=== PATIENT | female | born 1970 | race Caucasian/White ===

== ENCOUNTER 2024-02-02 20:25 | Emergency (ER) | payer OTHER, SELFPAY ==
[2024-02-02 20:29] VITALS: BP 164/100
--- NOTE | 2024-02-02 22:15 | ED.GENMED ---
History of Present Illness
<PANCHO Adams - Last Filed: 02/03/24 02:17>
General
Chief Complaint: Head Injury
Source: patient and significant other
Exam Limitations: none
Time Seen by Provider: 02/02/24 22:07
Nursing documentation reviewed up to this point in time: agreed with
Travel History
Have you had any contact with someone who has COVID-19?: No
Do you have any symptoms of coronavirus? Fever > 100 degrees, chills, cough, shortness of breath, sore throat, loss of taste or smell, muscle aches, or headache?: No
History of Present Illness
History of Present Illness:
This is a 53 year old female w/ no significant PMHx who presents to the ER w/ c/o head injury x3 hours. Patient reports she was trying to put down her garage door when it broke off the rails and fell onto her head. This was accidental. She reports
throbbing headache and feeling more tired. She denies LOC. She denies visual disturbances, dizziness or lightheadedness, photophobia, or amnesia. She denies fever, chills, CP, or SOB. She is not UTD on her Tdap.
Review of Systems
<PANCHO Adams - Last Filed: 02/03/24 02:17>
Review of Systems
Allergies reviewed?: Yes
All Other Systems: Not applicable
Constitutional: Reports fatigue
EENT: Reports no symptoms
Respiratory: Reports no symptoms
Cardiac: Reports no symptoms
ABD/GI: Reports no symptoms
: Reports no symptoms
Musculoskeletal: Reports no symptoms
Skin: Reports other (Laceration)
Neurological: Reports headache
Endocrine: Reports no symptoms
Hematologic/Lymphatic: Reports no symptoms
Psychiatric: Reports no symptoms
Phy Exam
<PACNHO Adams - Last Filed: 02/03/24 02:17>
General Physical Exam
General Presentation: well appearing and no apparent distress
General Skin: warm and dry
General Habitus: normal
General Mental: alert
General Hydration: appears well hydrated
ENT Exam
ENT Exam: EOMI, pharynx normal, neck supple and normocephalic
Eye Exam
Eye Exam: PERRL, cornea clear and conjunctiva normal
Cardiovascular Exam
Cardiovascular Exam: regular rate/rhythm, no edema, no murmur and normal peripheral pulses
Pulmonary Exam
Pulmonary Exam: lungs clear, no respiratory distress, no rales, no crackles, no rhonchi, no stridor, no wheezing and no cough
Gastrointestinal Exam
Gastrointestinal Exam: normal bowel sounds, non tender, soft, no organomegaly, no pulsatile mass and non distended
Neurological Exam
Neurological Exam: alert, oriented x3, no motor deficits and speech normal
Musculoskeletal Exam
Musculoskeletal Exam: full ROM and no edema
Skin Exam
Skin Exam: normal color, warm/dry, no rash, no petechia and laceration (7cm linear laceration on superior scalp )
Psychiatric Exam
Psychiatric Exam: normal mood/affect
Course
<PANCHO Adams - Last Filed: 02/03/24 02:17>
Orders/Labs/Results
Orders:
Orders
02/02/24 20:33
CT Head W/o Iv Contrast Urgent
Comment:
Reason For Exam: head injury
02/02/24 22:34
Ibuprofen [Motrin] 600 mg PO NOW STA
Tetanus/Diphth/Acelpertussis [Adacel] 0.5 ml IM .ONCE ONE
Vital Signs
Initial and Last Documented VS:
Initial Vital Signs
Temp Pulse Resp BP Pulse Ox
97.9 F 95 19 164/100 100
02/02/24 20:29 02/02/24 20:29 02/02/24 20:29 02/02/24 20:29 02/02/24 20:29
Last Documented Vital Signs
Temp Pulse Resp BP Pulse Ox
97.9 F 73 19 145/85 100
02/02/24 20:29 02/02/24 23:06 02/02/24 20:29 02/02/24 23:06 02/02/24 20:29
<Sarath Harper DO - Last Filed: 02/02/24 22:46>
Orders/Labs/Results
Orders:
Orders
02/02/24 20:33
CT Head W/o Iv Contrast Urgent
Comment:
Reason For Exam: head injury
02/02/24 22:34
Ibuprofen [Motrin] 600 mg PO NOW STA
Tetanus/Diphth/Acelpertussis [Adacel] 0.5 ml IM .ONCE ONE
Vital Signs
Initial and Last Documented VS:
Initial Vital Signs
Temp Pulse Resp BP Pulse Ox
97.9 F 95 19 164/100 100
02/02/24 20:29 02/02/24 20:29 02/02/24 20:29 02/02/24 20:29 02/02/24 20:29
Last Documented Vital Signs
Temp Pulse Resp BP Pulse Ox
97.9 F 73 19 145/85 100
02/02/24 20:29 02/02/24 23:06 02/02/24 20:29 02/02/24 23:06 02/02/24 20:29
Procedures
<PANCHO Adams - Last Filed: 02/03/24 02:17>
Laceration Closure
Superior Scalp:
Status of Wound: clean
Size of Wound in cm: 7
Description of Wound Edges: sharp
Preparation: cleaned with saline
Anesthesia: 1% Lidocaine with epi
Type of Closure: interrupted sutures
Skin Closure Material: 5-0 vicryl
Number of sutures: 6
<PANCHO Adams - Last Filed: 02/03/24 02:17>
MDM/Problems Addressed
Differential Diagnosis Includes:
Scalp laceration, concussion, subdural hematoma
Subdural hematoma considered due to head injury. However, head CT scan showed no acute intracranial abnormalities. I suspect mild concussion associated with head injury. She has mild nausea and headache. She does deny amnesia, photophobia, or
dizziness making it less likely that this is a severe concussion.
<PANCHO Adams - Last Filed: 02/03/24 02:17>
*Critical Care Note
Total Time (30-74mins, 75-104mins- exclusive of procedures): Not Applicable
ED Attending Note
<PANCHO Adams - Last Filed: 02/03/24 02:17>
-
Portions of this chart may have been created with voice recognition software.� Occasional wrong word or��sound alike� substitutions may have occurred due to the inherent limitations of voice recognition software.
<Sarath Harper, DO - Last Filed: 02/02/24 22:46>
ED Attending Note
Patient seen and examined by attending physician: Yes
I performed the substantive portion of visit, reviewed & personally made and approve the management plan that is documented in note by myself or BALBINA.: Yes
ED Attending Note:
I have seen and evaluated the patient with a [id number] encounter. I have spoken to the advance practicer provider and involved in the medical history, the physical exam, medical decision making.
Evaluation and management service: agree unless noted differently below.
Results interpretation: agree unless noted differently below.
Focused HPI: 53-year-old female presenting with head injury. A garage door fell on her head. She denies loss of consciousness or vomiting. She is unsure about her tetanus
Physical exam: Linear 7 cm laceration to top of scalp. EOMI. Patient lying in bed comfortable
Medical Decision Making: We discussed lori versus sutures. We opted for absorbable stitches so she did not have to follow-up for staple removal. Will update tetanus. We discussed concussion protocol and return precautions. CT head negative
Discharge Plan
Departure
Patient Disposition: Home (Routine Discharge)
Date of Disposition: 02/02/24
Time of Disposition: 22:45
Patient with high blood pressure during this ER visit?: Yes
Discharge Problem:
Laceration of scalp
Instructions: Concussion, Adult (DC), Laceration Repair With Lori (DC), BLOOD PRESSURE
Referrals:
Angie Noble MD [Family Provider] -
Activity Restrictions/Additional Instructions:
Watch for signs of infection: fever over 100.5�, increasing pain, red streaks around wound, swelling, drainage of pus, or bad smell. If any of these happen, return to ED promptly. The sutures will dissolve on their own.
Please return for any worsening symptoms.
You may return at any time if you have further concerns.
Please follow up with your doctor at the first available appointment, preferably this week.
Thank you for choosing [facility].
Interventions
Interventions:
*Risk Screen - Suicide Last Done: 02/02/24 20:29
*General Assessment Last Done: 02/02/24 20:29
*Neglect/Abuse Screening Last Done: 02/02/24 20:29
*ED COVID-19 Vaccine History Last Done: 02/02/24 20:29
*Nursing Disposition Last Done: 02/02/24 23:06
ED- Neurological Assessment Last Done: 02/02/24 20:47
ED-Skin Assessment Last Done: 02/02/24 20:47
Discharge Date and Time
Discharge Date/Time: 02/02/24 23:07
Print Language: [place]
[2024-02-02] MEDS: ADACEL 0.5 ML IM (23:01)
[2024-02-02] MEDS: MOTRIN 600 MG PO (23:02)
[2024-02-02 23:06] VITALS: BP 145/85
== END 2024-02-02 23:07 | disposition home or self-care (01) ==
LOC: EMR 20:25
PROVIDERS: EMERGENCY PHYSICIAN Student in an Organized Health Care Education/Training Program; FAMILY PHYSICIAN Internal Medicine
DX: S01.01XA Laceration without foreign body of scalp, initial encounter (principal); W20.8XXA Other cause of strike by thrown, projected or falling object, initial encounter; R03.0 Elevated blood-pressure reading, without diagnosis of hypertension; Z23 Encounter for immunization
CPT/HCPCS: 99284; 12002; 90471; 70450; 90715

== ENCOUNTER 2024-03-29 14:33 | Outpatient (RCR) | payer OTHER, SELFPAY ==
[2024-03-13] MEDS: VENOFER 110 MG IV (09:27)
[2024-03-13 09:32] VITALS: BP 130/79
[2024-03-22] MEDS: VENOFER 110 MG IV (14:39)
[2024-03-22 14:45] VITALS: BP 119/72
[2024-03-22 15:48] VITALS: BP 139/77
[2024-03-29 14:45] VITALS: BP 133/73
[2024-03-29] MEDS: VENOFER 110 MG IV (14:56)
[2024-03-29 16:05] VITALS: BP 133/75
== END 2024-04-02 08:53 | disposition home or self-care (01) ==
LOC: OID 14:33
PROVIDERS: ATTENDING PHYSICIAN Nurse Practitioner Family; FAMILY PHYSICIAN Internal Medicine
DX: D64.9 Anemia, unspecified (principal); D50.9 Iron deficiency anemia, unspecified; D36.9 Benign neoplasm, unspecified site; K60.2 Anal fissure, unspecified
CPT/HCPCS: 96365; J1756

== ENCOUNTER 2024-04-19 09:14 | Outpatient (RCR) | payer OTHER, SELFPAY ==
[2024-04-10 09:25] VITALS: BP 110/65
[2024-04-10] MEDS: VENOFER 110 MG IV (09:38)
[2024-04-10 10:45] VITALS: BP 126/73
[2024-04-19 09:20] VITALS: BP 131/75
[2024-04-19] MEDS: VENOFER 110 MG IV (09:32)
== END 2024-04-20 09:25 | disposition home or self-care (01) ==
LOC: OID 09:14
PROVIDERS: ATTENDING PHYSICIAN Nurse Practitioner Family; FAMILY PHYSICIAN Internal Medicine
DX: D64.9 Anemia, unspecified (principal); D50.9 Iron deficiency anemia, unspecified; D36.9 Benign neoplasm, unspecified site; K60.2 Anal fissure, unspecified
CPT/HCPCS: 96365; J1756

== ENCOUNTER 2024-12-10 06:21 | Day surgery (SDC) | payer OTHER, SELFPAY | END 2024-12-10 12:54 | disposition home or self-care (01) | LOC: GI 06:21 | PROVIDERS: ATTENDING PHYSICIAN Internal Medicine Gastroenterology | DX: D50.0 Iron deficiency anemia secondary to blood loss (chronic) (principal); K44.9 Diaphragmatic hernia without obstruction or gangrene; K31.89 Other diseases of stomach and duodenum; K31.7 Polyp of stomach and duodenum; K22.89 Other specified disease of esophagus; K22.70 Barrett's esophagus without dysplasia | CPT/HCPCS: 43239; 88305 ==

== ENCOUNTER → 2024-12-20 11:32 | Outpatient (REF) | payer OTHER, SELFPAY | LOC: HWWDC 11:32 | PROVIDERS: ATTENDING PHYSICIAN Nurse Practitioner Family | DX: Z12.31 Encounter for screening mammogram for malignant neoplasm of breast (principal) | CPT/HCPCS: 77063; 77067 ==